=== PATIENT | male | born 1950 | race Hispanic/Latino ===

== ENCOUNTER 2022-08-10 12:18 | Emergency (ER) | payer MEDICARE, OTHER ==
[~2022-08-10] VITALS: Ht 172.7 cm; Wt 92.1 kg
[~2022-08-10 12:18] MED LIST: AMOX TR-K CLV1 EAC2 PO; CIPRO500 MG PO; FRANKINCENSE PO; HYDROCHLOROTHIA25 MG PO; LISINOPRIL10 MG PO; MESTINON60 MG PO; OREGANO PO; PREDNISONE20 MG PO; WARFARIN SODIUM3 MG PO; [UNRECOGNIZED DRUG - OTHER] PO
[2022-08-10] MEDS ORDERED: IBUPROFEN 600 MG TAB PO STA (12:40)
[2022-08-10] MEDS ORDERED: SODIUM CHLORIDE 0.9% 1000ML 1,000 ML IV STA (12:40)
[2022-08-10] MEDS ORDERED: ACETAMINOPHEN 325 MG TAB ONE (12:44)
[2022-08-10 12:48] LABS: BASOPHILS % 0.2 % (0.0-1.0); HEMATOCRIT 40.3 % (38.2-49.6); HEMOGLOBIN 14.5 g/dL (14.0-18.0); LYMPHOCYTES # (AUTO) 0.5 (1.0-3.2); LYMPHOCYTES % 5.4 % (18.0-39.1); MEAN CORPUSCULAR VOLUME 83.3 fL (81-99); MONOCYTES # (AUTO) 0.2 (0.2-0.8); MONOCYTES % 2.3 % (4.4-11.3); NEUTROPHILS # (AUTO) 8.9 (2.1-6.9); NEUTROPHILS % 91.5 % (38.7-80.0); PLATELET COUNT 151 x10e3/uL (140-360); RED BLOOD COUNT 4.84 x10e6/uL (4.3-5.7); RED CELL DISTRIBUTION WIDTH 12.2 % (11.7-14.4)
[2022-08-10 13:10] LABS: INR 1.07; PARTIAL THROMBOPLASTIN TIME 21.8 seconds (23.8-35.5); PROTHROMBIN TIME 14.4 seconds (11.9-14.5)
[2022-08-10 13:11] LABS: ALBUMIN/GLOBULIN RATIO 0.7 (0.8-2.0); CALCIUM 8.5 mg/dL (8.4-10.2); CREATININE, SERUM 1.26 mg/dL (0.72-1.25)
[2022-08-10] MEDS ORDERED: IOPAMIDOL 370 MG/ML 100 ML INFUS..BTL INJ ONE (13:35)
[2022-08-10 15:50] LABS: CLARITY,URINE SL CLOUDY (CLEAR); COLOR,URINE YELLOW (YELLOW)
[2022-08-10 15:51] LABS: KETONES,URINE 1+ (NEGATIVE); LEUKOCYTE ESTERASE ,URINE NEGATIVE (NEGATIVE); NITRITE,URINE NEGATIVE (NEGATIVE); PROTEIN,URINE DIPSTICK 2+ (NEGATIVE); URINE UROBILINOGEN 0.2 mg/dL (0.2 - 1)
[2022-08-10 16:02] LABS: AMORPHOUS SEDIMENT,URINE MODERATE (FEW); BACTERIA,URINE FEW /HPF; WBC,URINE (MAN) 0-5 /HPF (0-5)
[2022-08-10] MEDS ORDERED: DEXAMETHASONE SOD PHOS 10 MG/1 ML VIAL IV ONE (16:15)
[2022-08-10] MEDS ORDERED: SODIUM CHLORIDE 0.9% 1000ML 1,000 ML IV SCH (16:15)
[2022-08-10] MEDS ORDERED: ALBUTEROL/IPRATROPIUM 3 ML NEB NEB PRN (16:15)
[2022-08-10] MEDS ORDERED: ONDANSETRON HCL INJ 2MG/ML 2ML 2 MG/ML VIAL IV PRN (16:15)
[2022-08-10] MEDS ORDERED: Morphine 2mg Syringe 2 MG/ML SYR IV PRN (16:15)
[2022-08-10] MEDS ORDERED: PREDNISONE20 MG PO (16:23)
[2022-08-10] MEDS ORDERED: VENTOLIN HFA18 GM INH (16:23)
[2022-08-10 16:37] VITALS: PULSE 74; RESP 20; O2SAT 97
[2022-08-10 17:30] VITALS: O2SAT 95
== END 2022-08-10 17:50 | disposition home or self-care (01) ==
LOC: ER 12:25
DX: R50.9 Fever, unspecified (principal); R06.02 Shortness of breath; R52 Pain, unspecified; G70.00 Myasthenia gravis without (acute) exacerbation; Z20.822 Contact with and (suspected) exposure to COVID-19; R94.31 Abnormal electrocardiogram [ECG] [EKG]; Z87.19 Personal history of other diseases of the digestive system
CPT/HCPCS: 36415; 71046; 71260; 80053; 81001; 82550; 83880; 84484; 85025; 85379; 85610; 85730; 87400; 93005; 94640; 94799; 99284; J1100; J7030; Q9967; U0002

== ENCOUNTER 2022-08-12 09:03 | Inpatient (IN) | payer MEDICARE, OTHER ==
[~2022-08-12] VITALS: Ht 172.7 cm; Wt 101.6 kg
[2022-08-12] VITALS (15 sets, daily range): BP systolic 102–146; BP diastolic 61–81; PULSE 84–110; RESP 17–32; TEMP 98.9–99.7; O2SAT 94–100
[~2022-08-12 09:03] MED LIST changes: +VENTOLIN HFA18 GM INH
[2022-08-12 09:45] LABS: BASOPHILS # (AUTO) 0.1 (0.0-0.1); BASOPHILS % 0.3 % (0.0-1.0); EOSINOPHILS % 0.2 % (0.0-6.0); HEMATOCRIT 41.4 % (38.2-49.6); HEMOGLOBIN 15.2 g/dL (14.0-18.0); LYMPHOCYTES # (AUTO) 0.7 (1.0-3.2); LYMPHOCYTES % 3.1 % (18.0-39.1); MEAN CORPUSCULAR HGB CONC 36.7 g/dL (31-35); MEAN CORPUSCULAR VOLUME 81.8 fL (81-99); MONOCYTES # (AUTO) 0.4 (0.2-0.8); NEUTROPHILS # (AUTO) 20.6 (2.1-6.9); NEUTROPHILS % 93.6 % (38.7-80.0); PLATELET COUNT 159 x10e3/uL (140-360); RED BLOOD COUNT 5.06 x10e6/uL (4.3-5.7); RED CELL DISTRIBUTION WIDTH 12.4 % (11.7-14.4)
[2022-08-12 09:54] LABS: INR 1.03
[2022-08-12 09:55] LABS: PARTIAL THROMBOPLASTIN TIME 33.4 seconds (23.8-35.5)
[2022-08-12] MEDS: LACTATED RINGER'S 1,000 ML INJ SCH ×2 (09:57→17:26)
[2022-08-12 10:01] LABS: ALBUMIN 2.6 g/dL (3.5-5.0); ALBUMIN/GLOBULIN RATIO 0.7 (0.8-2.0); ANION GAP 17.3 mmol/L (8-16); CALCIUM 7.9 mg/dL (8.4-10.2); CREATININE, SERUM 2.41 mg/dL (0.72-1.25); POTASSIUM 3.3 mmol/L (3.5-5.1)
[2022-08-12] MEDS ORDERED: DEXAMETHASONE SOD PHOS 10 MG/1 ML VIAL IV ONE (10:15)
[2022-08-12] MEDS ORDERED: ALBUTEROL/IPRATROPIUM 3 ML NEB NEB ONE (10:15)
[2022-08-12] MEDS ORDERED: POTASSIUM CHLORIDE 10MEQ/100ML 100 ML IV ONE ×2 (10:30→15:00)
[2022-08-12] MEDS ORDERED: LACTATED RINGER'S 1,000 ML IV ONE ×2 (10:45→12:45)
[2022-08-12] MEDS ORDERED: SODIUM CHLORIDE FLUSH 10 ML SYR INJ PRN (11:00)
[2022-08-12] MEDS ORDERED: LACTATED RINGER'S 1,000 ML INJ SCH (11:00)
[2022-08-12] MEDS ORDERED: ACETAMINOPHEN 325 MG TAB PO ONE (11:30)
[2022-08-12 11:54] LABS: CLARITY,URINE CLOUDY (CLEAR); COLOR,URINE YELLOW (YELLOW); KETONES,URINE NEGATIVE (NEGATIVE); LEUKOCYTE ESTERASE ,URINE NEGATIVE (NEGATIVE); NITRITE,URINE NEGATIVE (NEGATIVE); PROTEIN,URINE DIPSTICK 2+ (NEGATIVE); URINE UROBILINOGEN 1 mg/dL (0.2 - 1)
[2022-08-12 11:56] LABS: BACTERIA,URINE MANY /HPF; EPITHELIAL CELLS,URINE MODERATE /LPF
[2022-08-12 11:57] LABS: AMORPHOUS SEDIMENT,URINE FEW (FEW)
[2022-08-12] MEDS ORDERED: ONDANSETRON HCL INJ 2MG/ML 2ML 2 MG/ML VIAL IV PRN (12:00)
[2022-08-12] MEDS ORDERED: ACETAMINOPHEN 1000 MG/100 ML 100 ML IV ONE (12:00)
[2022-08-12] MEDS ORDERED: ACETAMINOPHEN 1000 MG/100 ML IV ONE (12:10)
[2022-08-12] MEDS ORDERED: LACTATED RINGER'S 1,000 ML ONE (13:07)
[2022-08-12 15:43] LABS: BAND NEUTROPHILS % (MANUAL) 2 %; EOSINOPHILS % (MANUAL) 3 % (0-7); MYELOCYTES % (MANUAL) 1 % (0-0); NEUTROPHILS % (MANUAL) 94 % (40-74); PLATELET ESTIMATE ADEQUATE; PLATELET MORPHOLOGY COMMENT NORMAL; RBC MORPHOLOGY COMMENT NORMAL
[2022-08-12] MEDS: PYRIDOSTIGMINE BROMIDE 60 MG TAB PO SCH (18:34)
[2022-08-12] MEDS: SODIUM CHLORIDE 0.9% 1000ML 1,000 ML IV SCH (22:11)
[2022-08-13] VITALS (29 sets, daily range): BP systolic 93–146; BP diastolic 59–89; PULSE 90–117; RESP 15–29; TEMP 98.6–102.3; O2SAT 93–98
[2022-08-13] MEDS: PYRIDOSTIGMINE BROMIDE 60 MG TAB PO SCH ×5 (00:14→23:15)
[2022-08-13] MEDS: ACETAMINOPHEN 325 MG TAB PO PRN ×2 (00:14→15:18)
[2022-08-13 08:15] LABS: BASOPHILS % 0.2 % (0.0-1.0); HEMATOCRIT 35.1 % (38.2-49.6); HEMOGLOBIN 12.6 g/dL (14.0-18.0); LYMPHOCYTES # (AUTO) 0.6 (1.0-3.2); LYMPHOCYTES % 3.1 % (18.0-39.1); MEAN CORPUSCULAR HEMOGLOBIN 29.5 pg (28-32); MEAN CORPUSCULAR HGB CONC 35.9 g/dL (31-35); MEAN CORPUSCULAR VOLUME 82.2 fL (81-99); MONOCYTES # (AUTO) 0.2 (0.2-0.8); NEUTROPHILS # (AUTO) 18.2 (2.1-6.9); NEUTROPHILS % 92.4 % (38.7-80.0); PLATELET COUNT 119 x10e3/uL (140-360); RED BLOOD COUNT 4.27 x10e6/uL (4.3-5.7); RED CELL DISTRIBUTION WIDTH 12.4 % (11.7-14.4)
[2022-08-13 08:33] LABS: ANION GAP 13.6 mmol/L (8-16); CALCIUM 7.1 mg/dL (8.4-10.2); CREATININE, SERUM 2.02 mg/dL (0.72-1.25); POTASSIUM 3.6 mmol/L (3.5-5.1)
[2022-08-13 10:36] LABS: LYMPHOCYTES % (MANUAL) 1 % (19-48); NEUTROPHILS % (MANUAL) 99 % (40-74); PLATELET ESTIMATE SLIGHTLY DECREASED; PLATELET MORPHOLOGY COMMENT NORMAL; RBC MORPHOLOGY COMMENT NORMAL
[2022-08-13] MEDS: SODIUM CHLORIDE 0.9% 1000ML 1,000 ML IV SCH (10:38)
[2022-08-13] MEDS ORDERED: POTASSIUM CHLORIDE 20 MEQ TAB CR PO PRN (15:30)
[2022-08-13] MEDS ORDERED: HYDRALAZINE HCL 20 MG/ML VIAL IV PRN (15:30)
[2022-08-13] MEDS ORDERED: DIPHENHYDRAMINE HCL 25 MG CAP PO PRN (15:30)
[2022-08-13] MEDS ORDERED: ACETAMINOPHEN 325 MG TAB PO PRN (15:30)
[2022-08-13] MEDS ORDERED: BENZONATATE 100 MG CAP PO PRN (15:30)
[2022-08-13] MEDS ORDERED: LIDOCAINE 4% PATCH TP PRN (15:30)
[2022-08-13] MEDS ORDERED: SIMETHICONE 80 MG CHEW PO PRN (15:30)
[2022-08-13] MEDS ORDERED: ALBUTEROL/IPRATROPIUM 3 ML NEB NEB PRN (15:30)
[2022-08-13] MEDS ORDERED: MELATONIN 5 MG TABLET PO PRN ×2 (15:30→21:00)
[2022-08-13] MEDS ORDERED: DOCUSATE SODIUM 100 MG CAP PO PRN (15:30)
[2022-08-13] MEDS ORDERED: DEXTROSE 50% SYRINGE 50 ML IV PRN (15:30)
[2022-08-13] MEDS: DEXAMETHASONE SOD PHOS INJ 4 MG/ML SDV IV SCH ×2 (16:02→21:02)
[2022-08-13] MEDS ORDERED: FUROSEMIDE INJ 10 MG/ML 4 ML VIAL IV ONE (16:15)
[2022-08-13] MEDS: ENOXAPARIN SOD INJ 40 MG/0.4 ML SYR SC SCH (17:13)
[2022-08-13 19:49] LABS: POTASSIUM,URINE 16.4 mmol/L; SODIUM,URINE < 20 mmol/L
[2022-08-14] VITALS (29 sets, daily range): BP systolic 118–151; BP diastolic 67–84; PULSE 87–107; RESP 15–28; TEMP 99.9–101.3; O2SAT 94–97
[2022-08-14] MEDS: ACETAMINOPHEN 325 MG TAB PO PRN ×2 (04:43→13:38)
[2022-08-14 05:57] LABS: BASOPHILS % 0.2 % (0.0-1.0); HEMATOCRIT 34.7 % (38.2-49.6); HEMOGLOBIN 12.4 g/dL (14.0-18.0); LYMPHOCYTES # (AUTO) 1.2 (1.0-3.2); MEAN CORPUSCULAR HEMOGLOBIN 29.2 pg (28-32); MEAN CORPUSCULAR HGB CONC 35.7 g/dL (31-35); MEAN CORPUSCULAR VOLUME 81.6 fL (81-99); MONOCYTES # (AUTO) 0.5 (0.2-0.8); MONOCYTES % 2.7 % (4.4-11.3); NEUTROPHILS # (AUTO) 14.6 (2.1-6.9); PLATELET COUNT 118 x10e3/uL (140-360); RED BLOOD COUNT 4.25 x10e6/uL (4.3-5.7); RED CELL DISTRIBUTION WIDTH 12.7 % (11.7-14.4)
[2022-08-14] MEDS: PYRIDOSTIGMINE BROMIDE 60 MG TAB PO SCH ×4 (06:00→16:54)
[2022-08-14 06:19] LABS: ALBUMIN 1.8 g/dL (3.5-5.0); ALBUMIN/GLOBULIN RATIO 0.5 (0.8-2.0); ANION GAP 13.5 mmol/L (8-16); CALCIUM 7.2 mg/dL (8.4-10.2); CREATININE, SERUM 1.96 mg/dL (0.72-1.25); POTASSIUM 3.5 mmol/L (3.5-5.1)
[2022-08-14 06:20] LABS: MAGNESIUM 2.3 MG/DL (1.3-2.1)
[2022-08-14] MEDS ORDERED: SODIUM CHLORIDE 0.9% 500ML 500 ML IV ONE (09:00)
[2022-08-14] MEDS: PANTOPRAZOLE SOD 40 MG TABEC PO SCH (09:06)
[2022-08-14] MEDS: DEXAMETHASONE SOD PHOS INJ 4 MG/ML SDV IV SCH ×2 (09:06→20:46)
[2022-08-14 13:04] LABS: BAND NEUTROPHILS % (MANUAL) 1 %; LYMPHOCYTES % (MANUAL) 2 % (19-48); MONOCYTES % (MANUAL) 5 % (3.4-9.0); NEUTROPHILS % (MANUAL) 92 % (40-74); NUCLEATED RED BLOOD CELLS 1
[2022-08-14 13:06] LABS: PLATELET ESTIMATE ADEQUATE; PLATELET MORPHOLOGY COMMENT NORMAL; RBC MORPHOLOGY COMMENT NORMAL
[2022-08-14] MEDS ORDERED: ACETAMINOPHEN 1000 MG/100 ML IV PRN (15:45)
[2022-08-14] MEDS ORDERED: KETOROLAC TROMETHAMINE 30 MG/ML VIAL IV ONE (16:15)
[2022-08-14] MEDS: ENOXAPARIN SOD INJ 40 MG/0.4 ML SYR SC SCH (16:54)
[2022-08-14] MEDS ORDERED: IBUPROFEN 400 MG TAB PO PRN (17:00)
[2022-08-14] MEDS: CEFTRIAXONE 2 GM in SODIUM CHLORIDE 0.9% 100 ML IV SCH (20:45)
[2022-08-14] MEDS: HYDROCODONE/APAP 5MG-325MG TAB PO PRN (20:55)
[2022-08-15] VITALS (58 sets, daily range): BP systolic 113–175; BP diastolic 58–119; PULSE 68–157; RESP 10–34; TEMP 97.6–101.2; O2SAT 93–99
[2022-08-15] MEDS: PYRIDOSTIGMINE BROMIDE 60 MG TAB PO SCH ×3 (01:18→16:50)
[2022-08-15] MEDS ORDERED: ACETAMINOPHEN 1000 MG/100 ML 100 ML IV ONE (03:54)
[2022-08-15 06:17] LABS: BASOPHILS % 0.2 % (0.0-1.0); HEMATOCRIT 35.3 % (38.2-49.6); HEMOGLOBIN 12.4 g/dL (14.0-18.0); LYMPHOCYTES % 12.2 % (18.0-39.1); MEAN CORPUSCULAR HEMOGLOBIN 29.4 pg (28-32); MEAN CORPUSCULAR HGB CONC 35.1 g/dL (31-35); MEAN CORPUSCULAR VOLUME 83.6 fL (81-99); MONOCYTES # (AUTO) 0.7 (0.2-0.8); MONOCYTES % 4.5 % (4.4-11.3); NEUTROPHILS # (AUTO) 12.9 (2.1-6.9); NEUTROPHILS % 78.5 % (38.7-80.0); PLATELET COUNT 141 x10e3/uL (140-360); RED BLOOD COUNT 4.22 x10e6/uL (4.3-5.7); RED CELL DISTRIBUTION WIDTH 13.1 % (11.7-14.4)
[2022-08-15 06:34] LABS: ANION GAP 11.9 mmol/L (8-16); CALCIUM 7.5 mg/dL (8.4-10.2); CREATININE, SERUM 1.71 mg/dL (0.72-1.25); MAGNESIUM 2.6 MG/DL (1.3-2.1); POTASSIUM 3.9 mmol/L (3.5-5.1)
[2022-08-15 07:33] LABS: LYMPHOCYTES % (MANUAL) 2 % (19-48); MONOCYTES % (MANUAL) 2 % (3.4-9.0); MYELOCYTES % (MANUAL) 2 % (0-0); NEUTROPHILS % (MANUAL) 94 % (40-74); PLATELET ESTIMATE SLIGHTLY DECREASED; PLATELET MORPHOLOGY COMMENT NORMAL; RBC MORPHOLOGY COMMENT NORMAL
[2022-08-15] MEDS: PANTOPRAZOLE SOD 40 MG TABEC PO SCH (07:39)
[2022-08-15] MEDS: DEXAMETHASONE SOD PHOS INJ 4 MG/ML SDV IV SCH ×2 (08:18→20:22)
[2022-08-15] MEDS ORDERED: CEFTRIAXONE 2 GM in SODIUM CHLORIDE 0.9% 100 ML IV SCH (09:00)
[2022-08-15] MEDS: FUROSEMIDE 20 MG TAB PO SCH ×2 (13:30→13:45)
[2022-08-15] MEDS: HYDROCODONE/APAP 5MG-325MG TAB PO PRN (13:30)
[2022-08-15] MEDS ORDERED: SODIUM CHLORIDE 0.9% 500ML 500 ML IV ONE (14:30)
[2022-08-15] MEDS ORDERED: ACETAMINOPHEN 1000 MG/100 ML IV ONE (17:15)
[2022-08-15] MEDS: ENOXAPARIN SOD INJ 40 MG/0.4 ML SYR SC SCH (17:48)
[2022-08-15] MEDS: CEFTRIAXONE 2 GM in SODIUM CHLORIDE 0.9% 100 ML IV SCH (20:21)
[2022-08-16] VITALS (11 sets, daily range): BP systolic 124–167; BP diastolic 77–102; PULSE 67–105; RESP 16–20; TEMP 97.4–98.8; O2SAT 93–100
[2022-08-16] MEDS: PYRIDOSTIGMINE BROMIDE 60 MG TAB PO SCH ×4 (01:00→21:05)
[2022-08-16 05:52] LABS: BASOPHILS % 0.2 % (0.0-1.0); HEMATOCRIT 37.4 % (38.2-49.6); LYMPHOCYTES # (AUTO) 1.4 (1.0-3.2); LYMPHOCYTES % 8.6 % (18.0-39.1); MEAN CORPUSCULAR HEMOGLOBIN 29.3 pg (28-32); MEAN CORPUSCULAR HGB CONC 34.8 g/dL (31-35); MEAN CORPUSCULAR VOLUME 84.2 fL (81-99); MONOCYTES # (AUTO) 1.2 (0.2-0.8); MONOCYTES % 7.7 % (4.4-11.3); NEUTROPHILS # (AUTO) 12.7 (2.1-6.9); NEUTROPHILS % 79.4 % (38.7-80.0); PLATELET COUNT 139 x10e3/uL (140-360); RED BLOOD COUNT 4.44 x10e6/uL (4.3-5.7); RED CELL DISTRIBUTION WIDTH 13.2 % (11.7-14.4)
[2022-08-16 06:24] LABS: ALBUMIN 1.9 g/dL (3.5-5.0); ALBUMIN/GLOBULIN RATIO 0.5 (0.8-2.0); CALCIUM 7.6 mg/dL (8.4-10.2); CREATININE, SERUM 1.39 mg/dL (0.72-1.25)
[2022-08-16] MEDS: FUROSEMIDE 20 MG TAB PO SCH ×2 (09:00→14:34)
[2022-08-16] MEDS: DEXAMETHASONE SOD PHOS INJ 4 MG/ML SDV IV SCH ×2 (09:28→21:04)
[2022-08-16] MEDS: PANTOPRAZOLE SOD 40 MG TABEC PO SCH (09:35)
[2022-08-16] MEDS ORDERED: SODIUM CHLORIDE 0.9% 250ML 250 ML ONE (14:25)
[2022-08-16] MEDS: Vancomycin IV 1.25 GM in SODIUM CHLORIDE 0.9% 250ML 250 ML IV SCH (14:37)
[2022-08-16] MEDS: ENOXAPARIN SOD INJ 40 MG/0.4 ML SYR SC SCH (17:03)
[2022-08-17] VITALS (8 sets, daily range): BP systolic 144–164; BP diastolic 84–96; PULSE 84–99; RESP 16–20; TEMP 97.5–98.2; O2SAT 91–98
[2022-08-17] MEDS: PYRIDOSTIGMINE BROMIDE 60 MG TAB PO SCH ×3 (06:38→22:00)
[2022-08-17] MEDS: DEXAMETHASONE SOD PHOS INJ 4 MG/ML SDV IV SCH ×2 (08:57→22:12)
[2022-08-17] MEDS: FUROSEMIDE 20 MG TAB PO SCH (08:57)
[2022-08-17] MEDS: PANTOPRAZOLE SOD 40 MG TABEC PO SCH (08:57)
[2022-08-17] MEDS: Vancomycin IV 1.25 GM in SODIUM CHLORIDE 0.9% 250ML 250 ML IV SCH (09:02)
[2022-08-17] MEDS ORDERED: ONDANSETRON HCL 4 MG ORAL DISINTEGRATING TAB PO PRN (12:30)
[2022-08-17] MEDS: ENOXAPARIN SOD INJ 40 MG/0.4 ML SYR SC SCH (17:30)
[2022-08-18 01:18] VITALS: BP 164/90; PULSE 97; RESP 18; TEMP 97.8; O2SAT 97
[2022-08-18] MEDS: PYRIDOSTIGMINE BROMIDE 60 MG TAB PO SCH (05:48)
[2022-08-18 06:57] LABS: BASOPHILS % 0.2 % (0.0-1.0); HEMATOCRIT 38.5 % (38.2-49.6); HEMOGLOBIN 13.5 g/dL (14.0-18.0); LYMPHOCYTES # (AUTO) 0.9 (1.0-3.2); LYMPHOCYTES % 7.9 % (18.0-39.1); MEAN CORPUSCULAR HEMOGLOBIN 29.7 pg (28-32); MEAN CORPUSCULAR HGB CONC 35.1 g/dL (31-35); MEAN CORPUSCULAR VOLUME 84.6 fL (81-99); MONOCYTES # (AUTO) 0.6 (0.2-0.8); MONOCYTES % 4.8 % (4.4-11.3); NEUTROPHILS % 84.6 % (38.7-80.0); PLATELET COUNT 149 x10e3/uL (140-360); RED BLOOD COUNT 4.55 x10e6/uL (4.3-5.7); RED CELL DISTRIBUTION WIDTH 12.8 % (11.7-14.4)
[2022-08-18 07:08] VITALS: PULSE 80; RESP 16; O2SAT 94
[2022-08-18 07:23] LABS: ALBUMIN 2.2 g/dL (3.5-5.0); ALBUMIN/GLOBULIN RATIO 0.7 (0.8-2.0); ANION GAP 12.9 mmol/L (8-16); CALCIUM 7.4 mg/dL (8.4-10.2); CREATININE, SERUM 1.03 mg/dL (0.72-1.25); POTASSIUM 3.9 mmol/L (3.5-5.1)
[2022-08-18] MEDS: PANTOPRAZOLE SOD 40 MG TABEC PO SCH (07:30)
[2022-08-18 08:55] VITALS: BP 168/104; PULSE 96; RESP 20; TEMP 97; O2SAT 96
[2022-08-18] MEDS: Vancomycin IV 1.25 GM in SODIUM CHLORIDE 0.9% 250ML 250 ML IV SCH (08:56)
[2022-08-18] MEDS: FUROSEMIDE 20 MG TAB PO SCH (08:56)
[2022-08-18] MEDS: DEXAMETHASONE SOD PHOS INJ 4 MG/ML SDV IV SCH (08:57)
[2022-08-18] MEDS ORDERED: TAMSULOSIN HCL 0.4 MG CAP PO ONE (09:15)
[2022-08-18 12:40] VITALS: BP 168/94; PULSE 90; RESP 18; TEMP 97.9; O2SAT 100
== END 2022-08-18 12:51 | disposition home or self-care (01) | DRG 871 ==
LOC: ER 09:14 → ERHOLD 11:02 → ICU 14:27 → MED/SURG 08-16 01:50
PROVIDERS: ADMIT Internal Medicine; ATTEND Internal Medicine
PROC: 02HV33Z Insertion of Infusion Device into Superior Vena Cava, Percutaneous Approach (ICD-10-PCS; principal; 2022-08-12)
DX: A41.9 Sepsis, unspecified organism (principal); J69.0 Pneumonitis due to inhalation of food and vomit; N17.9 Acute kidney failure, unspecified; J90 Pleural effusion, not elsewhere classified; N39.0 Urinary tract infection, site not specified; E87.1 Hypo-osmolality and hyponatremia; E87.20 Acidosis, unspecified; M62.82 Rhabdomyolysis; R65.20 Severe sepsis without septic shock; G70.00 Myasthenia gravis without (acute) exacerbation; E86.0 Dehydration; R13.10 Dysphagia, unspecified; I45.10 Unspecified right bundle-branch block; E87.6 Hypokalemia; R33.8 Other retention of urine; N40.1 Benign prostatic hyperplasia with lower urinary tract symptoms; I12.9 Hypertensive chronic kidney disease with stage 1 through stage 4 chronic kidney disease, or unspecified chronic kidney disease; N18.9 Chronic kidney disease, unspecified; R62.7 Adult failure to thrive; I80.9 Phlebitis and thrombophlebitis of unspecified site; Z20.822 Contact with and (suspected) exposure to COVID-19
CPT/HCPCS: 36415; 36569; 51700; 71045; 71250; 74176; 74230; 76770; 80048; 80053; 81001; 82533; 82550; 82948; 83605; 83735; 83880; 83930; 83935; 84133; 84134; 84295; 84300; 84443; 84484; 84550; 85025; 85610; 85730; 86039; 87040; 87086; 87400; 93005; 94640; 94760; 94799; 99285; J0692; J0696; J1100; J1650; J1885; J1940; J2185; J3480; J7030; J7040; J7050

== ENCOUNTER → 2023-12-05 | Outpatient (REF) | payer OTHER ==
[~2023-12-05] MED LIST changes: +GADOBENATE DIMEGLUMINE 0 ML IV ONE
== END ==
LOC: MRI 09:32
PROVIDERS: ATTEND Pediatrics
DX: H49.9 Unspecified paralytic strabismus (principal)

== ENCOUNTER 2024-02-03 21:16 | Inpatient (IN) | payer MEDICARE, OTHER ==
[~2024-02-03] VITALS: Ht 172.7 cm; Wt 85.3 kg
[~2024-02-03 21:16] MED LIST changes: -GADOBENATE DIMEGLUMINE 0 ML IV ONE
[2024-02-03 21:41] LABS: BASOPHILS % 0.4 % (0.0-1.0); EOSINOPHILS % 0.6 % (0.0-6.0); HEMATOCRIT 38.6 % (38.2-49.6); HEMOGLOBIN 12.9 g/dL (14.0-18.0); LYMPHOCYTES # (AUTO) 3.2 (1.0-3.2); LYMPHOCYTES % 66.4 % (18.0-39.1); MEAN CORPUSCULAR HEMOGLOBIN 29.8 pg (28-32); MEAN CORPUSCULAR HGB CONC 33.4 g/dL (31-35); MEAN CORPUSCULAR VOLUME 89.1 fL (81-99); MONOCYTES # (AUTO) 0.4 (0.2-0.8); MONOCYTES % 7.8 % (4.4-11.3); NEUTROPHILS # (AUTO) 1.2 (2.1-6.9); NEUTROPHILS % 24.6 % (38.7-80.0); PLATELET COUNT 150 x10e3/uL (140-360); RED BLOOD COUNT 4.33 x10e6/uL (4.3-5.7); RED CELL DISTRIBUTION WIDTH 14.1 % (11.7-14.4); WHITE BLOOD COUNT 4.88 x10e3/uL (4.8-10.8)
[2024-02-03 21:47] VITALS: TEMP 98.1
[2024-02-03 21:56] LABS: ALBUMIN/GLOBULIN RATIO 1.3 (0.8-2.0); ANION GAP 15.5 mmol/L (8-16); BILIRUBIN,TOTAL 1.7 mg/dL (0.2-1.2); CREATININE, SERUM 1.16 mg/dL (0.72-1.25); POTASSIUM 3.5 mmol/L (3.5-5.1)
[2024-02-03 21:58] LABS: CALCIUM 9.2 mg/dL (8.4-10.2)
[2024-02-03 21:59] LABS: INFLUENZA A AG NEGATIVE (NEGATIVE); INFLUENZA B AG NEGATIVE (NEGATIVE)
[2024-02-03 22:00] LABS: CORONAVIRUS COVID-19 AG NEGATIVE (NEGATIVE)
[2024-02-03 23:14] VITALS: PULSE 56; RESP 18
[2024-02-03] MEDS ORDERED: ONDANSETRON HCL INJ 2MG/ML 2ML 2 MG/ML VIAL IV PRN (23:15)
[2024-02-03 23:30] VITALS: BP 163/68; PULSE 62; RESP 20; TEMP 97.7; O2SAT 100
[2024-02-03] MEDS ORDERED: LISINOPRIL40 MG PO (23:48)
[2024-02-03] MEDS ORDERED: MESTINON60 MG PO (23:48)
[2024-02-03] MEDS ORDERED: PREDNISONE5 MG PO (23:48)
[2024-02-03 23:55] VITALS: BP 192/75; PULSE 61
[2024-02-04] VITALS (8 sets, daily range): BP systolic 122–192; BP diastolic 62–75; PULSE 57–71; RESP 16–19; TEMP 97.8–98.6; O2SAT 95–100
[2024-02-04] MEDS: SODIUM CHLORIDE 0.9% 1000ML 1,000 ML IV SCH (00:33)
[2024-02-04] MEDS: PYRIDOSTIGMINE BROMIDE 60 MG TAB PO SCH (06:00)
[2024-02-04] MEDS: PREDNISONE 5 MG TAB PO SCH (08:37)
[2024-02-04] MEDS: LISINOPRIL 20 MG TAB PO SCH (08:37)
[2024-02-04] MEDS ORDERED: HYDRALAZINE HCL 20 MG/ML VIAL IV PRN (10:15)
[2024-02-04] MEDS: METRONIDAZOLE 500MG/NS 100ML 100 ML IV SCH (12:43)
[2024-02-05] VITALS (7 sets, daily range): BP systolic 137–151; BP diastolic 67–75; PULSE 55–78; RESP 17–20; TEMP 97.7–98.2; O2SAT 99–100
[2024-02-05] MEDS: LISINOPRIL 20 MG TAB PO SCH (08:54)
[2024-02-05 09:49] LABS: BASOPHILS % 0.2 % (0.0-1.0); EOSINOPHILS % 0.2 % (0.0-6.0); HEMATOCRIT 36.2 % (38.2-49.6); HEMOGLOBIN 12.1 g/dL (14.0-18.0); LYMPHOCYTES # (AUTO) 2.6 (1.0-3.2); LYMPHOCYTES % 58.2 % (18.0-39.1); MEAN CORPUSCULAR HGB CONC 33.4 g/dL (31-35); MEAN CORPUSCULAR VOLUME 89.8 fL (81-99); MONOCYTES # (AUTO) 0.3 (0.2-0.8); MONOCYTES % 7.1 % (4.4-11.3); NEUTROPHILS # (AUTO) 1.5 (2.1-6.9); NEUTROPHILS % 34.3 % (38.7-80.0); PLATELET COUNT 161 x10e3/uL (140-360); RED BLOOD COUNT 4.03 x10e6/uL (4.3-5.7); RED CELL DISTRIBUTION WIDTH 14.4 % (11.7-14.4); WHITE BLOOD COUNT 4.38 x10e3/uL (4.8-10.8)
[2024-02-05 10:27] LABS: ANION GAP 13.9 mmol/L (8-16); CALCIUM 8.2 mg/dL (8.4-10.2); CREATININE, SERUM 1.02 mg/dL (0.72-1.25); POTASSIUM 3.9 mmol/L (3.5-5.1)
== END 2024-02-05 18:15 | disposition home or self-care (01) | DRG 56 ==
LOC: ER 21:20 → ERHOLD 23:03 → MED/SURG2 23:24
PROVIDERS: ADMIT Internal Medicine; ATTEND Internal Medicine
DX: G70.01 Myasthenia gravis with (acute) exacerbation (principal); J69.0 Pneumonitis due to inhalation of food and vomit; R62.7 Adult failure to thrive; R13.10 Dysphagia, unspecified; I10 Essential (primary) hypertension; R53.81 Other malaise; Z11.52 Encounter for screening for COVID-19; E66.9 Obesity, unspecified; Z68.28 Body mass index [BMI] 28.0-28.9, adult
CPT/HCPCS: 36415; 71045; 71250; 74230; 80048; 80053; 83880; 84484; 85025; 93005; 94799; 99284; J0696; J2470; J7030; J7512